=== PATIENT | male | born 1995 | race Caucasian/White ===

== ENCOUNTER 2017-01-14 18:25 | Emergency (ER) | payer BC, OTHER ==
[~2017-01-14] VITALS: Ht 188 cm; Wt 87.8 kg
[2017-01-14 18:29] VITALS: BP 150/82; PULSE 98; TEMP 37; O2SAT 97; Ht 188 cm; Wt 87.8 kg
[2017-01-14] MEDS ORDERED: XYLOCAINE 1%/SOD BICARB 20 ML VIAL INFIL ONE (19:29)
[2017-01-14] MEDS ORDERED: CEPH500C PO (20:28)
[2017-01-14] MEDS ORDERED: CEPHALEXIN 500MG HOME PACK 1 EA BTL PO ONE (20:30)
--- NOTE | 2017-01-15 00:59 | EMERGENCY ROOM VISIT NOTE ---
History First contact with patient: 19:26 Chief Complaint: LACERATION/CUT (SUT/DERMABOND) Stated Complaint: LEFT HAND CUT Nursing Triage Summary: laceration to left middle finger from utility knife patinet also c/c of left ear bleeding s/p qtip insertion History of Present Illness The patient is a 21 year old male who presents to the Emergency Room with complaints of lacerations to his left index and middle finger, as well as bleeding from his left ear. The patient reports that he injured his left ear yesterday while using a Q-tip. He has noticed mild bleeding from the ear, and sensation of muffled hearing. He denies any other recent upper respiratory infections. The patient's primary reason for this visit is active bleeding from his left third finger laceration. The patient was attempting to cut a wooden dowel zara for a school project. The patient rates his finger discomfort a 6 out of 10, and denies any significant ear pain. Review of Systems 10 system review was performed and was negative except for pertinent positives and negatives as indicated in history of present illness Past Medical/Surgical History Medical Problems: (1) Bronchitis Surgical Problems: (1) History of tonsillectomy Family History FH: cancer FH: diabetes mellitus FH: hypertension Social History Smoking Status: Never Smoker Alcohol Use: none Marital Status: single Occupation Status: [employer] student Current/Historical Medications Scheduled Cephalexin Monohydrate (Keflex), 500 MG PO QID Physical Exam Vital Signs Date Time Temp Pulse Resp B/P (MAP) Pulse Ox O2 Delivery O2 Flow Rate FiO2 01/14/17 18:29 37.0 98 18 150/82 97 Room Air Physical Exam CONSTITUTIONAL: Healthy and well nourished. Alert and oriented X 3 with positive affect. Patient does not appear in any acute distress. HEENT: Normocephalic, atraumatic. Pupils equal, round and reactive. Examination of left ear shows a large amount of blood. I can see a portion of the inferior tympanic membrane, however the superior portion appears perforated. NECK: Full active range of motion without discomfort. MUSCULOSKELETAL: Initial exam shows the patient with a large pressure dressing on his left index and middle finger. With removal of the pressure dressing, the patient did have mild bleeding from the radial aspect of a 3.5 cm flap laceration on the volar aspect of the finger. See the following Procedure section for further details of wound exploration and repair. The patient also has a smaller 1 cm laceration across the volar middle phalanx region of the index finger. The patient does have good flexor function of both fingers. Capillary refill of the fingertips is less than 2 seconds. INTEGUMENTARY: No rash or other significant dermatologic conditions noted. NEUROLOGIC: No focal neurologic deficits noted. Left hand and fingers are sensory intact. Medical Decision & Procedures Medications Administered Medications (Trade) Dose Ordered Sig/Pili Route Start Time Stop Time Status Last Admin Dose Admin Cephalexin Monohydrate (Keflex 500MG Home Pack) 1 homepack NOW ONCE PO 01/14/17 20:30 01/14/17 20:31 DC 01/14/17 20:42 1 HOMEPACK Procedure Wound exploration and laceration repair was performed under both digital block and local anesthesia for the middle and index finger, respectively. This was performed after receiving verbal consent from the patient. Using buffered 1% lidocaine without epinephrine, good anesthesia was administered to both fingers. Attention was first directed to the middle finger. Pressure dressing removal did show an active bleeder from the radial aspect of the flap laceration. Applying pressure to the digital artery stop the bleeding. Using a 6-0 Vicryl suture, several bleeding sites were ligated with good hemostasis achieved. Further wound exploration does not show any obvious involvement of the underlying tendons or joints. As indicated in the previous section, the patient does have good flexor function of the middle finger. The wound was irrigated with approximately 50 mL of normal saline, then approximated using 5- 0 nylon simple interrupted sutures 10. Attention was then directed to the index finger with local anesthesia administered. This wound was also irrigated with normal saline, and approximated using 5-0 nylon simple interrupted sutures 3. Bacitracin dressings and metal splint were applied to the middle finger. The patient tolerated the procedure well. ED Course Patient history and physical exam were performed. Nurse's notes were reviewed. Vital signs were reviewed and were normal. Attention was first directed to the active bleeding wound of the left third finger. The patient did require underlying Vicryl ligation suturing for hemostasis before closure. The patient did have a simple laceration of the index finger that was also approximated. Further examination of the left ear also is concerning for a tympanic membrane perforation. The patient was therefore prophylactically covered with Keflex antibiotics. The patient was instructed to follow-up with ENT (Dr. Vides environmental compliance specialist ) for further management of his tympanic membrane perforation. He was instructed to wear waterproof ear plugs when showering. The patient was provided additional verbal and written instructions for finger laceration care. Suture removal in 12-14 days, or seek reevaluation sooner for any signs of wound infection. The patient was happy with plan of care, voice understanding of all discharge instructions, and denied any pain at the time of discharge. Medical Decision Medication Reconcilliation Current Medication List: was personally reviewed by me Blood Pressure Screening Patient's blood pressure: Normal blood pressure Impression Primary Impression: Laceration of left middle finger with complication Additional Impressions: Laceration of left index finger Traumatic left tympanic membrane perforation Departure Information Dispostion Home / Self-Care Condition FAIR Prescriptions Cephalexin Monohydrate (Keflex) 500 Mg Cap 500 MG PO QID for 7 Days, #28 CAP Prov: Ady Beavers PA 01/14/17 Referrals Naina Vides M.D. Forms HOME CARE DOCUMENTATION FORM, IMPORTANT VISIT INFORMATION Patient Instructions My [facility] Additional Instructions Keep wound clean and dry. Do not allow any crusting or dried blood to accumulate on sutures. If this occurs, use a 1:1 solution of hydrogen peroxide/ water on a Q-tip to clean the wound. Use an antibiotic ointment for 3-4 days, then let wound dry. Suture removal in 12-14 days. Return sooner for any signs of infection (increasing redness, swelling, drainage). Ice and elevate for swelling and pain. Wear metal splint when active to avoid any undue trauma to the wound or sutures. Follow-up with ENT physician (Dr. Vides) for further management of your tympanic membrane perforation. Wear a waterproof earplug to avoid any water intrusion into the ear. Take Keflex as prescribed to reduce risk for infection. Ibuprofen 800 mg and/or Tylenol 1000 mg every 8 hours. You may also alternate these medications for more effective pain relief: Ibuprofen --4 HRS--> Tylenol --4 HRS--> ibuprofen --4 HRS--> Tylenol .... Problem Qualifiers Additional Impressions: Laceration of left index finger Encounter type: initial encounter Damage to nail status: without damage Foreign body presence: without foreign body Qualified Codes: S61.211A - Laceration without foreign body of left index finger without damage to nail, initial encounter
== END 2017-01-14 20:43 | disposition home or self-care (01) ==
LOC: C.EDB 18:29 → C.EDD 20:43
DX: S61.211A Laceration without foreign body of left index finger without damage to nail, initial encounter (principal); S61.213A Laceration without foreign body of left middle finger without damage to nail, initial encounter; W26.0XXA Contact with knife, initial encounter; H72.92 Unspecified perforation of tympanic membrane, left ear; Z83.3 Family history of diabetes mellitus; Z82.49 Family history of ischemic heart disease and other diseases of the circulatory system